=== PATIENT | male | born 1985 | race Caucasian/White ===

== ENCOUNTER 2019-08-20 19:14 | Emergency (ER) | payer OTHER ==
[2019-08-20 19:50] LABS: #Basophils 0.1 thou/uL (0.0-0.2); #Eosinphils 0.3 thou/uL (0.0-0.7); #Monocytes 0.7 thou/uL (0.11-0.59); #Neutrophils 4.5 thou/uL (1.40-6.50); %Basophils 1.3 % (0.0-1.0); %Eosinophils 3.5 % (0.0-10.0); %Lymphocytes 25.8 % (21.0-51.0); %Monocytes 9.3 % (0.0-10.0); %Neutrophils 60.1 % (42.0-75.0); Hemoglobin 14.2 g/dL (14.0-18.0); Mean Corpuscular HGB CONC 31.1 g/dL (32.0-36.0); Mean Corpuscular Hemoglobin 29.7 pg (27.0-31.0); Mean Corpuscular Volume 95.3 fL (78.0-98.0); Mean Platelet Volume 5.7 fL (7.4-10.4); Platelet Count 270 thou/uL (130-400); RBC Distribution Width 12.4 % (11.5-14.5); White Blood Cell (WBC) Count 7.5 thou/uL (4.8-10.8)
[2019-08-20] MEDS ORDERED: Bisacodyl 10 MG SUPP ONE (20:01)
[2019-08-20 20:06] LABS: ALT (SGPT) 13 U/L (8-55); AST (SGOT) 15 U/L (5-34); Albumin 4.2 g/dL (3.5-5.0); Alkaline Phosphatase 100 U/L (40-110); Anion Gap 15 mmol/L (10-20); BUN (Urea Nitrogen) 11 mg/dL (8.9-20.6); Bilirubin, Total 0.2 mg/dL (0.2-1.2); Calc. Creatinine Clearance 0 mL/min (70-130); Calcium 9.3 mg/dL (7.8-10.44); Carbon Dioxide 27 mmol/L (22-29); Chloride 106 mmol/L (98-107); Estimated GFR-MDRD Greater than 90; Globulin 3.3 g/dL (2.4-3.5); Glucose 121 mg/dL (70-105); Lipase 23 U/L (8-78); Potassium 3.8 mmol/L (3.5-5.1); Protein, Total 7.5 g/dL (6.0-8.3); Sodium 144 mmol/L (136-145)
[2019-08-20] MEDS ORDERED: Sodium Chloride 0.9% 1,000 ML ONE (20:47)
--- NOTE | 2019-08-20 20:52 | RAD ---
TWO VIEWS OF THE ABDOMEN: 08/20/19 HISTORY: No bowel movement for three weeks. Multiple back surgeries. FINDINGS: Limited visualized lung bases are clear. Postsurgical changes thoracolumbar spine are noted with mult iple bipedicular screws and posterior rods as well as transverse bars transfixing the thoracolumbar s pine. 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 IVC filter is noted in place just to the r ight of midline at the L2-3 level. There is descending calcified loops of bowel present, but the bowel gas pattern is overall nonspecifi c. There is paucity of bowel gas in the region of the rectum. Phleboliths overlie the left hemipelvis . IMPRESSION: Mild gaseous distention of loops of bowel, but the bowel gas pattern is overall nonspecific. There is paucity of bowel gas in the region of the rectum. POS: OFF
[2019-08-20] MEDS ORDERED: Mag-Al Plus 1200 MG/1200 MG/120 MG/30 ML UDCUP ONE (20:59)
== END 2019-08-20 21:30 ==
LOC: NAV ERS 19:14
DX: R14.0 Abdominal distension (gaseous) (principal); F41.9 Anxiety disorder, unspecified; F31.9 Bipolar disorder, unspecified; F43.10 Post-traumatic stress disorder, unspecified
CPT/HCPCS: 74019; 80053; 83690; 85025; J7050